=== PATIENT | male | born 1975 | race Caucasian/White ===

== ENCOUNTER → 2019-02-13 | Outpatient (CLI) | payer MEDICARE ==
[2019-02-13 14:51] LABS: Basophils % (A) 0 %; Eosinophils # (A) 0.2 k/uL (0-0.7); Eosinophils % (A) 2 %; HGB 13.3 gm/dL (13.0-17.5); Lymphocytes # (A) 1.7 k/uL (1.0-4.8); Lymphocytes % (A) 21 %; MCH 30.7 pg (25.0-35.0); MCHC 32.5 g/dL (31.0-37.0); MCV 94.4 fL (80.0-100.0); Mean Platelet Volume 7.3; Monocytes # (A) 0.4 k/uL (0-1.0); Monocytes % (A) 5 %; Neutrophils # (A) 5.7 k/uL (1.3-7.7); Neutrophils % (A) 70 %; Platelet Count 251 k/uL (150-450); RBC 4.34 m/uL (4.30-5.90); WBC 8.2 k/uL (3.8-10.6)
[2019-02-13 18:23] LABS: Erythrocyte Sedimentation Rate 7 mm/hr (0-15)
[2019-02-13 20:49] LABS: Anti-DNA, DS unit <1.0 IU/mL; DNA Double-Stranded NEGATIVE (NEGATIVE)
[2019-02-14 11:22] LABS: Complement C3 89.8 mg/dL (80.0-207.0)
== END | disposition home or self-care (01) ==
LOC: LABWHC1 13:59
PROVIDERS: ATTEND Family Medicine
DX: M65.341 Trigger finger, right ring finger (principal); M72.0 Palmar fascial fibromatosis [Dupuytren]
CPT/HCPCS: 36415; 85025; 85652; 86140; 86160; 86162; 86225; 86235